=== PATIENT | female | born 1950 | race Native Hawaiian/Other Pacific Islander ===

== ENCOUNTER 2017-09-08 08:30 | Outpatient (CLI) | payer OTHER | END 2017-09-08 21:38 | disposition home or self-care (01) | LOC: RAD 08:30 | DX: M46.1 Sacroiliitis, not elsewhere classified (principal); M54.12 Radiculopathy, cervical region ==

== ENCOUNTER 2018-08-10 07:58 | Day surgery (SDC) | payer OTHER | END 2018-08-10 09:53 | disposition home or self-care (01) | LOC: OR 07:58 | PROC: 3E0U33Z Introduction of Anti-inflammatory into Joints, Percutaneous Approach (ICD-10-PCS; principal; 2018-08-10) | PROC: 3E0U3BZ Introduction of Anesthetic Agent into Joints, Percutaneous Approach (ICD-10-PCS; 2018-08-10) | DX: M53.3 Sacrococcygeal disorders, not elsewhere classified (principal); M46.1 Sacroiliitis, not elsewhere classified; M47.898 Other spondylosis, sacral and sacrococcygeal region | CPT/HCPCS: J1020; J3490 ==

== ENCOUNTER 2019-05-18 13:17 | Outpatient (CLI) | payer OTHER | END 2019-05-18 22:32 | disposition home or self-care (01) | LOC: RAD 13:17 | DX: M25.559 Pain in unspecified hip (principal); M54.5 Low back pain; M54.2 Cervicalgia ==

== ENCOUNTER 2019-10-31 08:55 | Day surgery (SDC) | payer OTHER | END 2019-10-31 10:48 | disposition home or self-care (01) | LOC: OR 08:55 | PROC: 3E0T3BZ Introduction of Anesthetic Agent into Peripheral Nerves and Plexi, Percutaneous Approach (ICD-10-PCS; principal; 2019-10-31) | PROC: 3E0T33Z Introduction of Anti-inflammatory into Peripheral Nerves and Plexi, Percutaneous Approach (ICD-10-PCS; 2019-10-31) | DX: M47.816 Spondylosis without myelopathy or radiculopathy, lumbar region (principal) ==

== ENCOUNTER 2020-01-16 09:04 | Day surgery (SDC) | payer OTHER ==
[~2020-01-16] VITALS: Ht 30.5 cm; Wt 0.5 kg
== END 2020-01-16 10:43 | disposition home or self-care (01) ==
LOC: OR 09:04
PROC: 3E0T3BZ Introduction of Anesthetic Agent into Peripheral Nerves and Plexi, Percutaneous Approach (ICD-10-PCS; principal; 2020-01-16)
PROC: 3E0T33Z Introduction of Anti-inflammatory into Peripheral Nerves and Plexi, Percutaneous Approach (ICD-10-PCS; 2020-01-16)
DX: M47.816 Spondylosis without myelopathy or radiculopathy, lumbar region (principal)
CPT/HCPCS: J1100; J2001

== ENCOUNTER 2021-12-23 11:45 | Outpatient (CLI) | payer OTHER | END 2021-12-23 21:37 | disposition home or self-care (01) | LOC: US 11:45 | PROVIDERS: ATTEND Internal Medicine | DX: R60.0 Localized edema (principal) ==

== ENCOUNTER 2022-02-23 08:46 | Outpatient (CLI) | payer OTHER | END 2022-02-23 20:41 | disposition home or self-care (01) | LOC: US 08:46 | PROVIDERS: ATTEND Internal Medicine Nephrology | DX: I12.9 Hypertensive chronic kidney disease with stage 1 through stage 4 chronic kidney disease, or unspecified chronic kidney disease (principal); N18.4 Chronic kidney disease, stage 4 (severe); G62.89 Other specified polyneuropathies; N95.1 Menopausal and female climacteric states | CPT/HCPCS: 82570; 84156; 84166 ==